=== PATIENT | male | born 1990 | race Native Hawaiian/Other Pacific Islander ===

== ENCOUNTER 2020-08-03 05:51 | Emergency (ER) | payer SELFPAY ==
[2020-08-03 08:02] VITALS: BP 125/82
--- NOTE | 2020-08-03 09:04 | XRay Report ---
CHEST 2 VIEWS INDICATION: cough sob. COMPARISON: None. FINDINGS: Support devices: None. Heart: Within normal limits. Lungs/Pleura: No acute air space or interstitial disease. No significant pleural effusion. IMPRESSION: No acute findings. Signer Name: Skyler Garcia MD Signed: 08/03/2020 9:00 AM Workstation Name: [id number]
--- NOTE | 2020-08-03 09:43 | Emergency Department Report ---
- General Chief Complaint: Upper Respiratory Infection Stated Complaint: FEVER/PREV COVID Time Seen by Provider: 08/03/20 08:31 Source: patient Mode of arrival: Ambulatory Limitations: No Limitations - Related Data Previous Rx's Medication Instructions Recorded Last Taken Type levoFLOXacin [Levaquin] 500 mg PO QDAY #10 tablet 03/27/14 Unknown Rx Albuterol Mdi (or & Nicu Only) 1 puff IH QID PRN #8.5 gram 08/03/20 Unknown Rx [ProAir HFA Inhaler] predniSONE [Deltasone] 20 mg PO QDAY #5 tab 08/03/20 Unknown Rx Allergies Allergy/AdvReac Type Severity Reaction Status Date / Time No Known Allergies Allergy Unverified 03/26/14 20:41 ED Review of Systems ROS: Stated complaint: FEVER/PREV COVID Other details as noted in HPI Comment: All other systems reviewed and negative ED Past Medical Hx - Past Medical History Previous Medical History?: No - Surgical History Past Surgical History?: No - Social History Smoking Status: Current Some Day Smoker Substance Use Type: None - Medications Home Medications: Home Medications Medication Instructions Recorded Confirmed Last Taken Type levoFLOXacin [Levaquin] 500 mg PO QDAY #10 tablet 03/27/14 Unknown Rx Albuterol Mdi (or & Nicu Only) 1 puff IH QID PRN #8.5 gram 08/03/20 Unknown Rx [ProAir HFA Inhaler] predniSONE [Deltasone] 20 mg PO QDAY #5 tab 08/03/20 Unknown Rx ED Physical Exam - General Limitations: No Limitations General appearance: alert, in no apparent distress - Head Head exam: Present: atraumatic, normocephalic - Eye Eye exam: Present: normal appearance, EOMI Pupils: Present: normal accommodation - ENT ENT exam: Present: normal exam, normal orophraynx, mucous membranes moist - Neck Neck exam: Present: normal inspection - Respiratory Respiratory exam: Present: normal lung sounds bilaterally, rhonchi. Absent: respiratory distress, wheezes, rales, chest wall tenderness, accessory muscle use - Cardiovascular Cardiovascular Exam: Present: regular rate, normal rhythm. Absent: systolic murmur, diastolic murmur, rubs, gallop - GI/Abdominal GI/Abdominal exam: Present: soft, normal bowel sounds. Absent: tenderness, rebound - Rectal Rectal exam: Present: deferred - Extremities Exam Extremities exam: Present: normal inspection - Back Exam Back exam: Present: normal inspection - Neurological Exam Neurological exam: Present: alert, oriented X3 - Psychiatric Psychiatric exam: Present: normal affect, normal mood - Skin Skin exam: Present: warm, dry, intact, normal color. Absent: rash ED Course Vital Signs 08/03/20 08/03/20 05:56 08:01 Temperature 97.9 F 97.8 F Pulse Rate 64 61 Respiratory 18 16 Rate Blood Pressure 117/77 Blood Pressure 125/82 [right arm] O2 Sat by Pulse 99 100 Oximetry ED Medical Decision Making - Radiology Data Radiology results: report reviewed [address] [place] [id number] XRay Report Signed Patient: ALEXANDRA QUINN MR#: [id number] : 1990 Acct:[id number] Age/Sex: 29 / M ADM Date: 08/03/20 Loc: ED Attending Dr: Ordering Physician: GARRETT DOMINGUEZ Date of Service: 08/03/20 Procedure(s): XR chest routine 2V Accession Number(s): [id number] cc: GARRETT DOMINGUEZ Fluoro Time In Minutes: CHEST 2 VIEWS INDICATION: cough sob. COMPARISON: None. FINDINGS: Support devices: None. Heart: Within normal limits. Lungs/Pleura: No acute air space or interstitial disease. No significant pleural effusion. IMPRESSION: No acute findings. Signer Name: Skyler Garcia MD Signed: 08/03/2020 9:00 AM Workstation Name: [id number] Transcribed By: ES Dictated By: Skyler Garcia MD Electronically Authenticated By: Sykler Garcia MD Signed Date/Time: 08/03/20 0900 DD/ [id number] TD/TT: Print - Medical Decision Making This 29-year-old male patient presents with symptoms suspicious for likely viral upper respiratory tract infection and post coronavirus syndrome. Differential includes bacterial pneumonia, sinusitis, allergic rhinitis, bronchitis. Do not suspect underlying Cardiopulmonary process. I considered but think unlikely dangerous cause of this patient symptoms to include acute coronary syndrome, CHF or COPD exacerbations, pneumonia, pneumothorax. Patient is nontoxic appearing and not in need of emergent medical intervention. X-ray shows no acute process Plan: Reassurance, reassessment, [id number] medications, discharge with PCP follow-up. Critical care attestation.: If time is entered above; I have spent that time in minutes in the direct care of this critically ill patient, excluding procedure time. ED Disposition Clinical Impression: Cough, Post-acute COVID-19 syndrome Disposition: DC- TO HOME OR SELFCARE Is pt being admited?: No Does the pt Need Aspirin: No Condition: Stable Instructions: Cool Mist Vaporizer, Cough, Adult, [id number], Cough, Adult Prescriptions: predniSONE [Deltasone] 20 mg PO QDAY #5 tab Albuterol Mdi (or & Nicu Only) [ProAir HFA Inhaler] 1 puff IH QID PRN #8.5 gram PRN Reason: sob Referrals: NAT OCHOA MD [Primary Care Provider] - 3-5 Days Forms: Work/School Release Form(ED)
== END 2020-08-03 09:50 | disposition home or self-care (01) ==
LOC: ED 05:51
DX: R05 Cough (principal); Z20.822 Contact with and (suspected) exposure to COVID-19; Z79.899 Other long term (current) drug therapy
CPT/HCPCS: 71046; 99283